=== PATIENT | female | born 1930 | race Hispanic/Latino ===

== ENCOUNTER 2017-09-06 19:18 | Inpatient (IN) | payer MEDICARE, MEDICAID ==
[~2017-09-06 19:18] MED LIST: ISOVUE-370 76%-LOCM 1 ML ONE
[2017-09-06 20:44] LABS: #Basophils 0.1 thou/uL (0.0-0.2); #Eosinphils 0.1 thou/uL (0.0-0.7); #Lymphocytes 1.3 thou/uL (1.20-3.40); #Monocytes 0.6 thou/uL (0.11-0.59); #Neutrophils 6.7 thou/uL (1.40-6.50); %Basophils 0.6 % (0.0-1.0); %Eosinophils 1.6 % (0.0-10.0); %Lymphocytes 14.9 % (21.0-51.0); %Monocytes 6.5 % (0.0-10.0); Hematocrit 37.2 % (36.0-47.0); Mean Platelet Volume 6.7 fL (7.4-10.4); Red Blood Cell (RBC) Count 3.94 mill/uL (4.20-5.40); White Blood Cell (WBC) Count 8.7 thou/uL (4.8-10.8)
[2017-09-06 20:57] LABS: ALT (SGPT) 40 U/L (8-55); AST (SGOT) 40 U/L (5-34); Alkaline Phosphatase 87 U/L (40-150); Anion Gap 10 mmol/L (10-20); BUN (Urea Nitrogen) 25 mg/dL (9.8-20.1); Bilirubin, Total 0.5 mg/dL (0.2-1.2); Calc. Creatinine Clearance 0 mL/min (70-130); Calcium 9.2 mg/dL (7.8-10.44); Carbon Dioxide 27 mmol/L (23-31); Chloride 107 mmol/L (98-107); Estimated GFR-MDRD 40; Globulin 3.7 g/dL (2.4-3.5); Protein, Total 7.2 g/dL (6.0-8.3)
[2017-09-06 21:15] LABS: Lactic Acid - Sepsis 0.8 mmol/L (0.5-2.2)
[2017-09-06 21:21] LABS: PTT 31.5 SEC (22.9-36.1); Prothrombin Time 14.3 SEC (12.0-14.7)
--- NOTE | 2017-09-06 21:35 | RAD ---
LEFT FOREARM TWO VIEWS: History: Arm pain and swelling. FINDINGS: Bones are demineralized. There are arthritic changes of the elbow and wrist. There are no signs of f racture. There are vascular calcifications noted. IMPRESSION: No evidence of acute fracture. POS: [facility]
[2017-09-06] MEDS ORDERED: Piperacillin/Tazobactam 3.375 GM VIAL ONE ×2 (22:02→23:03)
--- NOTE | 2017-09-06 23:05 | ULT ---
LEFT WRIST ULTRASOUND: History: Swelling in left wrist region. FINDINGS: Real-time imaging of the area of the wrist shows a tiny complex fluid collection measuring only 2-3 mm in diameter. This may just represent some focal edema change within the soft tissue. The ulnar an d radial veins are patent. IMPRESSION: Tiny complex fluid collection within the wrist which could just represent some focal edematous carlos e of the soft tissue. POS: [facility]
[2017-09-06] MEDS ORDERED: Morphine 2 MG/ML SYRINGE ONE (23:12)
[2017-09-06] MEDS ORDERED: Ondansetron HCl/PF 4 MG/2 ML Vial ONE (23:12)
--- NOTE | 2017-09-06 23:21 | CT ---
CT OF LEFT UPPER EXTREMITY PERFORMED WITH INTRAVENOUS CONTRAST ENHANCEMENT: History: Swelling and redness. Decreased range of motion. Comparison: Ultrasound earlier today. FINDINGS: There are arthritic changes of the wrist noted. I do not appreciate any signs of any abscess collect ion. The tiny cystic area is seen on ultrasound is difficult to definitely appreciate on CT. I do no t appreciate any muscle edema change. There are some arthritic changes of the elbow joint noted. IMPRESSION: No signs of soft tissue abscess. POS: [facility]
[2017-09-07] MEDS ORDERED: Ibuprofen 600 MG TAB PO PRN (01:09)
[2017-09-07] MEDS ORDERED: Ondansetron HCl/PF 4 MG/2 ML Vial IVP PRN (01:21)
[2017-09-07] MEDS ORDERED: Sodium Chloride 0.9% 1,000 ML IV SCH (01:21)
[2017-09-07] MEDS ORDERED: Acetaminophen 650 MG Suppository PR PRN (01:21)
[2017-09-07] MEDS ORDERED: Morphine 2 MG/ML SYRINGE SLOW IVP PRN (01:21)
[2017-09-07] MEDS ORDERED: Bisacodyl 10 MG SUPP PR PRN (01:21)
[2017-09-07] MEDS ORDERED: Acetaminophen 325 MG TAB PO PRN (01:21)
[2017-09-07] MEDS ORDERED: Calcium Carbonate 500 MG ChewTAB PO PRN (01:21)
[2017-09-07] MEDS ORDERED: Bisacodyl 5 MG TAB PO PRN (01:21)
[2017-09-07] MEDS ORDERED: Ondansetron ODT 4 MG TAB PO PRN (01:21)
[2017-09-07 01:56] VITALS: BMI 21.6
[2017-09-07 05:23] LABS: #Eosinphils 0.1 thou/uL (0.0-0.7); #Lymphocytes 0.9 thou/uL (1.20-3.40); #Monocytes 0.7 thou/uL (0.11-0.59); #Neutrophils 5.8 thou/uL (1.40-6.50); %Basophils 0.6 % (0.0-1.0); %Eosinophils 1.6 % (0.0-10.0); %Lymphocytes 12.2 % (21.0-51.0); Hematocrit 33.2 % (36.0-47.0); Mean Platelet Volume 7.1 fL (7.4-10.4); Red Blood Cell (RBC) Count 3.47 mill/uL (4.20-5.40); White Blood Cell (WBC) Count 7.5 thou/uL (4.8-10.8)
[2017-09-07 05:44] LABS: Anion Gap 12 mmol/L (10-20); BUN (Urea Nitrogen) 20 mg/dL (9.8-20.1); Calc. Creatinine Clearance 30 mL/min (70-130); Calcium 8.2 mg/dL (7.8-10.44); Carbon Dioxide 17 mmol/L (23-31); Chloride 113 mmol/L (98-107); Estimated GFR-MDRD 50
[2017-09-07] MEDS: Piperacillin/Tazobactam 2.25 GM in Sodium Chloride 0.9% 100 ML IVPB SCH ×4 (06:04→23:52)
[2017-09-07 07:04] LABS: Hemoglobin A1c 5.2 % (4.0-6.0)
[2017-09-07] MEDS: Lisinopril 20 MG TAB PO SCH ×2 (07:51→09:10)
--- NOTE | 2017-09-07 08:42 | HP-2 ---
DATE OF ADMISSION: 09/07/2017 CODE STATUS: Full. PRIMARY CARE PHYSICIAN: Dr. Vanesa Julien ATTENDING: Dr. Clemente Brizuela RESIDENT: Nate Thomas M.D. - PGY-1 CHIEF COMPLAINT: Left wrist redness and pain. HISTORY OF PRESENT ILLNESS: This is an 87-year-old female that presents with redness and p ain in her left wrist and swelling and redness in her arm and fingers. She says it started out with the redness in her wrist on , started to get swelling in her fingers and pain started to pr ogress to her elbow. Denies any fever or chills. Does not recall any cuts or bites or opening to t he skin. She has not had a recent fall or trauma to that hand. Reports pain all the way up from he r fingers all the way up to her elbow. There is also swelling noted. She has no other concerns or complaints at this time. PAST MEDICAL HISTORY: Hypertension, type 2 diabetes, osteoarthritis, anemia of chronic disease, CKD 3, hypothyroidism, currently not taking any medicines. PAST SURGICAL HISTORY: Cholecystectomy. ALLERGIES: No known drug allergies. MEDICATIONS: Lisinopril 20 mg and Meloxicam 7.5 mg. FAMILY HISTORY: Insignificant. SOCIAL HISTORY: No smoking, no alcohol, no illicit drug use. REVIEW OF SYSTEMS: All review of systems unless otherwise noted in the HPI are negative at this janet e. PHYSICAL EXAMINATION: VITAL SIGNS: Her blood pressure is 145/68, pulse 100, respirations 18, temperature 98.7, pulse ox 9 8% on room air, current weight is 51.2 kilograms. GENERAL: Alert and oriented x3. She is a well-developed, thin and appropriately interactive. EYES: She does have a blown blood vessel in her right pupil. Eyes are a little red, a little injec elham. ENT: Oropharynx within normal limits. Nasal mucosa within normal limits. NECK: Supple, no lymphadenopathy, no thyromegaly, no bruits. CARDIOVASCULAR: Regular rate and rhythm. No murmurs, no gallops. Radial pulses, pedal pulses palp ated bilaterally. RESPIRATORY: Normal breathing effort. No retractions. Lungs are clear to auscultation bilaterally . EXTREMITIES: Warm and dry. There is elevated heat in her left wrist and arm. There is redness and swelling of the left wrist and swelling of the third and fifth digits. She has pain with passive f lexion of especially the fifth digit and some in the third digit. She does have pain to palpation a long her arm all the way up to her elbow. Moves all extremities bilaterally. MUSCULOSKELETAL: Range of motion is a little bit decreased. Structure is within normal limits. NEUROLOGIC: No focal neuro deficits. PSYCHIATRIC: Appropriate. LABORATORY DATA: White blood cell count 6.7, hemoglobin 12.1, hematocrit 37.2, platelets of 262, % neutrophils are 76.5. Sodium is 140, potassium 4.4, chloride 107, bicarbonate 27, BUN 25, creatinin e 1.25, glucose 105, calcium 9.2, total protein 7.2, albumin 3.5, alkaline phosphatase 87, AST is 40 , ALT is 40, total bilirubin is 0.5. PT is 14.3. INR is 1.1, aPTT 31.5, D-dimer 2.25. CRP was 4.6 3. Lactic acid was 0.8. A soft tissue ultrasound showed tiny complex fluid collection within wrist representing focal epidid ymis change in the soft tissue. Left forearm x-ray showed no acute fracture and upper extremity CT showed no signs of soft tissue abscess. ASSESSMENT AND PLAN: 1. I will start her on vancomycin and Zosyn. We will get a vancomycin trough after the fourth dose . We will continue morphine for pain, Tylenol and ibuprofen for pain. I will get a possible MRI if swelling and tenderness does not improve with antibiotics. I will continue normal saline at a rate of 100, possible concern for tenosynovitis. 2. She has a history of hypertension. We will continue her home lisinopril. 3. Anemia of chronic disease. We will repeat a CBC. 4. Type 2 diabetes mellitus, not currently taking any meds. We will continue on her regular diet. No concern for sugars at this time. 5. Chronic kidney disease 3. Her creatinine is likely at her baseline. We will repeat a BMP in e morning. 6. History of hypothyroidism, not currently taking any medicine.
[2017-09-07] MEDS ORDERED: Acetaminophen 500 MG TAB PO SCH (10:30)
[2017-09-07] MEDS ORDERED: Amoxicillin/Potassium Clav 500 MG TAB PO SCH (10:30)
[2017-09-07] MEDS ORDERED: Heparin 5,000 UNITS/ML VIAL SC SCH ×2 (11:15→15:00)
--- NOTE | 2017-09-07 16:12 | PDOC.EVN ---
Event Note - Event Note Event Note: Attending H&P I personally evaluated the patient and discussed the management with Dr. William Graf. I agree with the History, Examination, Assessment and Plan documented above with any addition or exceptions noted below. From the report from the doctors who initially saw her, it sounds like cellulitis was present. She is feeling beter since starting antibiotics. On my exam however, the left 3rd 4th an 5th PIPs were erythematous and tender along with the wrist suggesting an acute polyarthritis. Will check RF and uric acid and MRI of hand to better eval the soft tissue and joints of the hand and wrist.
--- NOTE | 2017-09-07 16:40 | MRI ---
MRI OF LEFT WRIST PERFORMED WITHOUT CONTRAST ENHANCEMENT: HISTORY: Hand and wrist pain. COMPARISON: CT and ultrasound examinations done yesterday. FINDINGS: There are marked arthritic changes of the wrist. This includes subchondral cystic changes basically involving all the carpal bone. These changes are most extensive in the triquetrum. There are noel ow edema changes involving the lunate and triquetrum. Some of the subchondral changes of the lunate are probably related to arthritic change and abutment with the distal radius, which also show some similar changes. There is evidence of a scapholunate ligament tear. There is fluid in the radial ulnar joint space, compatible with a triangular fibrocartilage tear. There are edema changes, which are mainly in the more superficial soft tissues. I do not see a defi nite defined abscess collection. No evidence of tenosynovitis. The carpal tunnel region appears un remarkable. There are some minimal edema changes associated with some of the flexor musculature of the proximal wrist. IMPRESSION: 1. 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 These changes are most pronounced at the le wanda of the lunate and triquetrum with the most prominent subchondral cystic changes in the lunate. There is also edema change, which is probably more reactive in nature and is felt less likely to be related to osteomyelitis. I think the changes of the lunate are on the radial side of the lunate an d are probably related to the arthritic changes with some associated changes of the radius in this r egion. There is also evidence of a triangular fibrocartilage tear and scapholunate ligament injury with underlying evidence for carpal instability, and inflammatory arthritis would be a consideration . The ulnar styloid is not eroded. 2. Edema changes which are mainly confined to the superficial soft tissues without any signs of an abscess. POS: [facility]
[2017-09-07] MEDS: Heparin 5,000 UNITS/ML VIAL SC SCH (20:37)
[2017-09-07] MEDS ORDERED: Vancomycin HCl 750 MG in Sodium Chloride 0.9% 250 ML 250 ML IVPB SCH (23:59)
[2017-09-08] MEDS: Piperacillin/Tazobactam 2.25 GM in Sodium Chloride 0.9% 100 ML IVPB SCH (05:52)
[2017-09-08 06:25] LABS: #Eosinphils 0.2 thou/uL (0.0-0.7); #Lymphocytes 0.9 thou/uL (1.20-3.40); #Monocytes 0.4 thou/uL (0.11-0.59); #Neutrophils 3.6 thou/uL (1.40-6.50); %Basophils 0.9 % (0.0-1.0); %Eosinophils 3.7 % (0.0-10.0); %Lymphocytes 17.5 % (21.0-51.0); %Monocytes 7.2 % (0.0-10.0); Hematocrit 31.1 % (36.0-47.0); Mean Platelet Volume 6.9 fL (7.4-10.4); Red Blood Cell (RBC) Count 3.23 mill/uL (4.20-5.40); White Blood Cell (WBC) Count 5.1 thou/uL (4.8-10.8)
--- NOTE | 2017-09-08 06:35 | PDOC.FM ---
- Subjective Subjective: Pt doing well this morning with no complaints. No adverse events overnight. - Objective Vital Signs & Weight: Vital Signs (12 hours) Temp Pulse Resp BP Pulse Ox 09/08/17 04:00 98.4 F 66 20 123/75 99 09/08/17 00:00 98.3 F 88 20 142/92 H 97 09/07/17 20:16 99.1 F 83 20 94 L 09/07/17 19:27 99.1 F 83 20 145/85 H 97 Weight Weight 51.965 kg I&O: 09/06/17 09/07/17 09/08/17 06:59 06:59 06:59 Intake Total 740 900 Balance 740 900 Result Diagrams: 09/08/17 05:28 09/07/17 04:40 <Doreen Graf - Last Filed: 09/08/17 11:25> - Objective Vital Signs & Weight: Vital Signs (12 hours) Temp Pulse Resp BP BP Pulse Ox 09/08/17 12:09 97.2 F L 77 16 169/75 H 100 09/08/17 08:45 158/82 H 09/08/17 08:00 98.5 F 61 16 09/08/17 07:18 98.5 F 61 16 125/66 97 09/08/17 04:00 98.4 F 66 20 123/75 99 Weight Weight 51.965 kg I&O: 09/07/17 09/08/17 09/09/17 06:59 06:59 06:59 Intake Total 740 900 460 Balance 740 900 460 Result Diagrams: 09/08/17 05:28 09/07/17 04:40 <Clemente Brizuela - Last Filed: 09/08/17 12:28> Phys Exam - Physical Examination Constitutional: NAD Respiratory: clear to auscultation bilateral Cardiovascular: RRR resolving redness and edema of left wrist; decrease in passive/active ROM Psychiatric: normal affect, A&O x 3 <Doreen Graf - Last Filed: 09/08/17 11:25> Dx/Plan (1) Left wrist pain Code(s): M25.532 - PAIN IN LEFT WRIST Status: Acute Plan: secondary to TFCC tear and scapholunate tear of left wrist. Will arrange for splint to be worn daily for 4 weeks, as well as outpatient referral for ortho. Infection ruled out with labs and imaging. Will discontinue antibiotics if blood cultures are negative. (2) Osteoarthritis Code(s): M19.90 - UNSPECIFIED OSTEOARTHRITIS, UNSPECIFIED SITE Status: Acute Plan: Tylenol as needed for pain. (3) Chronic kidney disease, stage 3 Code(s): N18.3 - CHRONIC KIDNEY DISEASE, STAGE 3 (MODERATE) Status: Chronic Plan: Avoid nephrotoxic medications and renally dose medications as appropriate. <Doreen Graf - Last Filed: 09/08/17 11:25> Attending Addendum - Attending Addendum I personally evaluated the patient and discussed the management with Dr. Graf. I agree with the History, Examination, Assessment and Plan documented above with any addition or exceptions noted below. Evidence for infectious process is unconvincing. We favor acute arthritis from unknown trauma or fall. Discharge planning underway. Wrist splint or outpt ortho eval is planned. <Clemente Brizuela - Last Filed: 09/08/17 12:28>
[2017-09-08] MEDS: Heparin 5,000 UNITS/ML VIAL SC SCH ×2 (08:45→15:18)
[2017-09-08] MEDS: Lisinopril 20 MG TAB PO SCH (08:45)
[2017-09-08 12:09] VITALS: BP 169/75; TEMP 97.2
--- NOTE | 2017-09-10 21:07 | DIS-2 ---
DATE OF ADMISISON: 09/07/2017 DATE OF DISCHARGE: 09/08/2017 RESIDENT: Doreen Graf M.D, PGY-2. ADMITTING ATTENDING: Clemente Brizuela M.D. DISCHARGE ATTENDING: Clemente Brizuela M.D. CONSULTS: None. PROCEDURES: 1. Left upper extremity soft tissue ultrasound that showed a tiny complex fluid collection within t he wrist, which could represent some focal edematous change manager the soft tissues. 2. Forearm x-ray, which showed no evidence of acute fracture. 3. Left upper extremity contrast CT that showed no signs of soft tissue abscess, some arthritic manuel nges of the elbow joint. 4. Left upper extremity MRI without contrast that showed severe arthritic changes of the carpal bon e regions, most pronounced at the level of the lunate and triquetrum, no edema change. Evidence of t riangular fibrocartilage tear and scapholunate ligament injury with underlying evidence for carpal i nstability and inflammatory arthritis. Edema changes of the superficial soft tissues with no signs of an abscess. PRIMARY DIAGNOSIS: Left wrist pain secondary to triangular fibrocartilage tear and scapholunate lig ament injury. SECONDARY DIAGNOSES: 1. Osteoarthritis. 2. Chronic kidney disease stage 3. DISCHARGE MEDICATIONS: Daily multivitamin tablet. DISCONTINUED MEDICATIONS: None. HISTORY OF PRESENT ILLNESS AND HOSPITAL COURSE: The patient is an 87-year-old female who c yaritza in with 1 week history of left wrist redness and swelling that began 4 days prior to admission a nd acutely worsened on the day prior to admission. The patient did not recall any recent fall or tr auma. Our initial evaluation in the emergency department concern for cellulitis was raised. The pa tient was started on vancomycin and Zosyn. Imaging performed showed the above findings. On physica l exam, per the primary team, patient's pain seemed more consistent with a structural ligamentous or joint injuries as opposed to pain related to cellulitis, so MRI was ordered for further evaluation, which showed the above findings. Blood cultures obtained after that point were negative, so antibi otics were discontinued. The patient was placed in a splint prior to discharge, which she will need for at least 4 weeks. Further outpatient management including orthopedic referral was discussed. The important lab values include a C-reactive protein of 4.63, relatively normal uric acid level of 6.9, negative rheumatoid factor and negative hepatitis B and C serology all of which were performed as part of an evaluation for polyarthropathy. The day after discharge, patient's pain improved wit h no intervention. DISPOSITION: Stable. DISCHARGE INSTRUCTIONS: 1. Location: Home. 2. Diet: Regular. 3. Activity: ad maximo. 4. Followup: The patient is to follow up with her primary care provider in 3 days as well as with Dr. Arpit Tidwell in 7 days.
== END 2017-09-08 16:36 | disposition home or self-care (01) | DRG 563 ==
LOC: ERS 19:18 → T4-B 09-07
PROVIDERS: ADMIT Family Medicine; ATTEND Family Medicine
PROC: 2W39X1Z Immobilization of Left Upper Extremity using Splint (ICD-10-PCS; principal; 2017-09-07)
DX: S63.592A Other specified sprain of left wrist, initial encounter (principal); E11.22 Type 2 diabetes mellitus with diabetic chronic kidney disease; N18.3 Chronic kidney disease, stage 3 (moderate); D63.1 Anemia in chronic kidney disease; I12.9 Hypertensive chronic kidney disease with stage 1 through stage 4 chronic kidney disease, or unspecified chronic kidney disease; M19.90 Unspecified osteoarthritis, unspecified site; X58.XXXA Exposure to other specified factors, initial encounter; Z86.39 Personal history of other endocrine, nutritional and metabolic disease
CPT/HCPCS: 36415; 36416; 76999; 80048; 80053; 82550; 83036; 83605; 84550; 85025; 85379; 85610; 85652; 85730; 86140; 86430; 86705; 86706; 86803; 87040; 87340; 96361; 96365; 96367; 96375; A4216; J1644; J2270; J2405; J2543; J3370; J7050